=== PATIENT | female | born 1975 | race Caucasian/White ===

== ENCOUNTER 2016-05-25 17:52 | Emergency (ER) | payer MEDICAID ==
[~2016-05-25] VITALS: Ht 165.1 cm; Wt 67.5 kg
[2016-05-25 17:54] VITALS: Ht 165.1 cm; Wt 67.5 kg
[2016-05-25] MEDS ORDERED: KETOROLAC 30 MG INJ IV STA (18:08)
[2016-05-25] MEDS ORDERED: NAPR-260 PO (18:10)
--- NOTE | 2016-05-25 18:13 | ERD ---
ER Documentation Chief Complaint Date/Time DATE: 05/25/16 TIME: 18:11 Chief Complaint intermittent head pain and fever x 1 week HPI This is a 40-year-old female presents to the ER with headache for the last week. Headache has been constant and yesterday and today got worse. Headache is located all over her head however is worse on the left side. Patient describes pain as a throbbing pain. She denies any photophobia she denies any nausea or vomiting. Patient denies any vision loss, vision changes. She denies any fevers or chills she denies any cough or cold symptoms she denies any trauma she denies any neck pain or neck stiffness. Patient has had episodes of headaches in the past that last a few hours however this headache has lasted much longer. ROS 12 point review of systems was done, all negative except per HPI. Medications Home Meds Active Scripts Naproxen* (Naprosyn*) 500 Mg Tablet, 500 MG PO BID Y for PAIN AND/OR INFLAMMATION, #30 TAB Prov:CLAUDIO BARRETT 05/25/16 Allergies Allergies: Coded Allergies: No Known Allergy (Unverified , 05/25/16) Physical Exam Vitals Vital Signs Date Time Temp Pulse Resp B/P Pulse Ox O2 Delivery O2 Flow Rate FiO2 05/25/16 20:50 98.2 68 20 113/65 Room Air 05/25/16 17:54 98.4 84 18 127/67 99 Physical Exam GENERAL: The patient is well developed and appropriate for usual state of health , in no apparent distress. HEENT: Atraumatic. Conjunctivae are pink. Pupils equal, round, and reactive to light. Extraocular muscles are grossly intact. Bilateral tympanic membranes are clear with no evidence of erythema, bulging or perforation. No sinus tenderness. NECK: C-spine is soft and supple. There is no cervical lymphadenopathy. CHEST: Clear to auscultation bilaterally. There are no rales, wheezes or rhonchi. HEART: Regular rate and rhythm. No murmurs, clicks, rubs or gallops. EXTREMITIES: Equal pulses bilaterally. There is no peripheral clubbing, cyanosis or edema. No focal swelling or erythema. Full range of motion. Grossly neurovascularly intact. NEURO: Alert and oriented. Cranial nerves II through XII are intact. Motor strength in all 4 extremities with 5/5 strength. Sensation grossly intact. Normal speech and gait. Negative Rhomberg. +2 DTRs. SKIN: There is no apparent rash or petechia. The skin is warm and dry. Result Diagram: 05/25/16183905/25/160 Results 24 hrs Laboratory Tests Test 05/25/16 18:32 05/25/16 18:40 Bedside Urine pH (LAB) 5.5 Bedside Urine Protein (LAB) Negative Bedside Urine Glucose (UA) Negative Bedside Urine Ketones (LAB) Negative Bedside Urine Blood 2+ Bedside Urine Nitrite (LAB) Negative Bedside Urine Leukocyte Esterase (L Negative White Blood Count 7.810^3/ul Red Blood Count 4.1310^6/ul Hemoglobin 12.7g/dl Hematocrit 37.1% Mean Corpuscular Volume 89.8fl Mean Corpuscular Hemoglobin 30.8pg Mean Corpuscular Hemoglobin Concent 34.2g/dl Red Cell Distribution Width 11.8% Platelet Count 35534^3/UL Mean Platelet Volume 10.8fl Neutrophils % 59.0% Lymphocytes % 30.8% Monocytes % 7.0% Eosinophils % 2.7% Basophils % 0.4% Nucleated Red Blood Cells % 0.0/100WBC Neutrophils # 4.610^3/ul Lymphocytes # 2.410^3/ul Monocytes # 0.610^3/ul Eosinophils # 0.210^3/ul Basophils # 0.010^3/ul Nucleated Red Blood Cells # 0.010^3/ul Sodium Level 141mmol/L Potassium Level 3.6mmol/L Chloride Level 101mmol/L Carbon Dioxide Level 28mmol/L Anion Gap 16 Blood Urea Nitrogen 9mg/dl Creatinine 0.61mg/dl Glucose Level 95mg/dl Calcium Level 9.3mg/dl Total Bilirubin 0.2mg/dl Direct Bilirubin 0.00mg/dl Indirect Bilirubin 0.2mg/dl Aspartate Amino Transf (AST/SGOT) 18IU/L Alanine Aminotransferase (ALT/SGPT) 24IU/L Alkaline Phosphatase 60IU/L Total Protein 8.0g/dl Albumin 4.6g/dl Globulin 3.40g/dl Albumin/Globulin Ratio 1.35 Current Medications Medications (Trade) Dose Ordered Sig/Esteban Route PRN Reason Start Time Stop Time Status Last Admin Dose Admin Ketorolac Tromethamine (Toradol) 30 mg ONCE STAT IV 05/25/16 18:08 05/25/16 18:10 DC 05/25/16 18:26 Metoclopramide HCl (Reglan) 10 mg ONCE ONCE IV 05/25/16 18:30 05/25/16 18:31 DC 05/25/16 18:26 Diphenhydramine HCl 25 mg 25 mg ONCE ONCE IV 05/25/16 18:30 05/25/16 18:31 DC 05/25/16 18:26 Sodium Chloride (NS) 500 ml @ 500 mls/hr Q1H ONCE IV 05/25/16 18:30 05/25/16 19:29 DC 05/25/16 18:27 Procedures/MDM Differential Diagnosis includes but is not limited to; tension headache, migraine headache, cluster headache, sinus headache, nonspecific febrile headache, trigeminal neurologia, subdural hematoma, subarachnoid bleeding, meningitis, encephalitis. Patient is neurologically intact with no focal neurological deficits. At this time patient is likely experiencing a migraine headache. Patient is afebrile and extremely well-appearing. Patient felt significantly better after treatment in the ER. She is afebrile and well appearing. I doubt meningitis, or sepsis. Suspicion for bleed is low. Patient needs to f/u with her PCP within 1-2 days or return to ER sooner if symptoms worsen. My medical decision making was discussed with the patient, she understands and agrees with plan. Departure Diagnosis: Primary Impression: Headache Condition: Stable Patient Instructions: Self-Care for Headaches Additional Instructions: Llame al doctor GEORGE y solomon kirk PALLAVI PARA DENTRO DE 1-2 SCHRADER.Dgale a la secretaria que nosotros le instruimos hacer esta pallavi.Avise o llame si campoverde condicin se empeora antes de la pallavi. Regresa aqui si peor o no mejor. CLAUDIO BARRETT May 25, 2016 18:13
[2016-05-25] MEDS ORDERED: DIPHENHYDRAMINE 50 MG INJ IV ONE (18:30)
[2016-05-25] MEDS ORDERED: SOD CHLORIDE 0.9% 500 ML IV ONE (18:30)
[2016-05-25] MEDS ORDERED: METOCLOPRAMIDE 10 MG INJ IV ONE (18:30)
[2016-05-25 18:31] LABS: URINE BLOOD (Dip) POC 2+ (NEGATIVE)
[2016-05-25 18:47] LABS: ADD SCAN DIFF NO
[2016-05-25 18:49] LABS: BASOPHILS % 0.4 % (0.0-2.0); EOSINOPHILS # 0.2 10^3/ul (0.0-0.5); EOSINOPHILS % 2.7 % (0.0-7.0); HEMATOCRIT 37.1 % (37.0-47.0); HEMOGLOBIN 12.7 g/dl (12.0-16.0); LYMPHOCYTES # 2.4 10^3/ul (0.8-2.9); LYMPHOCYTES % 30.8 % (15.0-51.0); MEAN CORPUSCULAR HEMOGLOBIN 30.8 pg (29.0-33.0); MEAN CORPUSCULAR HGB CONC 34.2 g/dl (32.0-37.0); MEAN CORPUSCULAR VOLUME 89.8 fl (82.0-101.0); MEAN PLATELET VOLUME 10.8 fl (7.4-10.4); MONOCYTE # 0.6 10^3/ul (0.3-0.9); NEUTROPHIL # 4.6 10^3/ul (1.6-7.5); PLATELET COUNT 293 10^3/UL (140-415); RED BLOOD COUNT 4.13 10^6/ul (4.20-5.40); RED CELL DISTRIBUTION WIDTH 11.8 % (11.5-14.5); WHITE BLOOD COUNT 7.8 10^3/ul (4.8-10.8)
[2016-05-25 18:57] LABS: ALBUMIN 4.6 g/dl (3.3-4.9); POTASSIUM 3.6 mmol/L (3.5-5.1)
[2016-05-25 18:59] LABS: BILIRUBIN,INDIRECT 0.2 mg/dl (0-1.1); BILIRUBIN,TOTAL 0.2 mg/dl (0.2-1.3); CREATININE 0.61 mg/dl (0.44-1.00)
[2016-05-25 19:00] LABS: ALBUMIN/GLOBULIN RATIO 1.35
[2016-05-25 19:01] LABS: CALCIUM 9.3 mg/dl (8.4-10.2)
[2016-05-25 20:50] VITALS: BP 113/65; PULSE 68; RESP 20; TEMP 98.2
== END 2016-05-25 20:42 | disposition home or self-care (01) ==
LOC: FTE 17:52
DX: R51 Headache (principal)
CPT/HCPCS: 80053; 81003; 85025; J1200; J1885; J2765; J7040; 96374; 96375